=== PATIENT | male | born 1985 | race Caucasian/White ===

== ENCOUNTER 2017-01-24 05:35 | Emergency (ER) | payer SELFPAY ==
[2017-01-24] MEDS ORDERED: HYDROmorphone HCL/PF 1 MG/ML DISP.SYRIN ONE (06:05)
[2017-01-24] MEDS: ASPIRIN 81 MG CHEW TAB PO ONE (06:09)
[2017-01-24] MEDS: HYDROmorphone HCL/PF 1 MG/ML DISP.SYRIN IVP ONE ×2 (06:09→07:09)
[2017-01-24 06:11] LABS: BASOPHILS % 0.4 (0.0-1.5); EOSINOPHILS % 1.3 % (0.0-6.8); MEAN CORPUSCULAR HEMOGLOBIN 31.6 pg (28.0-34.0); MEAN CORPUSCULAR VOLUME 91.6 fl (80.0-100.0)
[2017-01-24 06:24] LABS: eGFR (African) > 60; eGFR (Non-African) > 60
--- NOTE | 2017-01-24 06:27 | Diagnostic Imaging Report ---
REZA BREWER [facility] [address] [facility].[address] [address] Report Submission Date: Jan 24, 2017 6:25:16 AM CDT Patient Study Name: DANNY DELEON Date: Jan 24, 2017 6:06:46 AM CDT Modality Type: CR Gender: M Description: CHEST : 89 Institution: [facility] Physician: REZA BREWER Examination: PA and lateral chest. History: Evaluate lung lamb. Findings: PA lateral chest demonstrate a normal cardiac and mediastinal silhouette. No focal infiltrate. No effusion. No blunting of the costophrenic margins. Osseous structures are appropriate for age. Impression: No acute process. Electronically signed on Jan 24, 2017 6:25:16 AM CDT by: Phil JONES
--- NOTE | 2017-01-24 07:24 | ED Physician Documentation ---
Chest Pain - HISTORIAN Historian: patient, spouse, child - HPI Stated Complaint: Right rib pain Chief Complaint: Chest Pain Additional Information: pt had flu bugabout 2 weeks ago hasnt felt well since worse past several days- much worse approx 0200hrs with exxquisite pain rt lat thorax-when moves breathes or coughs-took ibu w/o relief Timing: gradual onset Last known Well Date: 01/10/17 Last Known Well Time: 02:00 Severity: moderate, severe Quality: burning, aching, sharp Chest Pain Radiation: no radiation Chest Pain Signs/Symptoms: denies: nausea, vomiting, diaphoresis Worsened By: deep breaths, exertion, change in position Relieved By: rest (staying still and hot shower) - ROS CONST: recent illness MS/LYMPH: none GI/: none EYES/ENT: denies: problems with vision, sore throat SKIN/ENDO: none NEURO/PSYCH: none - PAST HX ME risk factors: no pertinent history DVT/PE Risk Factors: none Neuro deficit: none GI disease: none Lung disease: none Surgeries/Procedures: none Allergies/Adverse Reactions: Allergies Allergy/AdvReac Type Severity Reaction Status Date / Time No Known Allergies Allergy Unverified 01/24/17 06:03 Home Medications: Ambulatory Orders Medication Instructions Recorded NK [NK] 01/24/17 - SOCIAL HX Smoking History: less than 1 pack/day Alcohol Use: none Drug Use: none - FAMILY HX Family HX: denies: CAD under 55 - VITAL SIGNS Vital Signs: Vital Signs Temp Pulse Resp BP Pulse Ox 99.9 F H 54 L 20 159/83 98 01/24/17 06:28 01/24/17 05:35 01/24/17 05:35 01/24/17 05:35 01/24/17 07:03 - REVIEWED ASSESSMENTS Nursing Assessment Reviewed: Yes Vitals Reviewed: Yes ED Results Lab/Radiology - Lab Results Lab Results: Lab Results 01/24/17 01/24/17 01/24/17 06:05 06:05 06:05 WBC RBC Hgb Hct MCV MCH MCHC RDW Plt Count Neut % (Auto) Lymph % (Auto) Shannon % (Auto) Eos % (Auto) Baso % (Auto) Neut # (Auto) Lymph # (Auto) Shannon # (Auto) Eos # (Auto) Baso # (Auto) Reactive Lymphs % Reactive Lymphs # D-Dimer 219 ng/mL ng/mL (6.0-682) Sodium 141 mmol/L mmol/L (136-145) Potassium 3.9 mmol/L mmol/L (3.5-5.0) Chloride 107 mmol/L mmol/L (98-110) Carbon Dioxide 30 mmol/L mmol/L (20-32) BUN 9 mg/dL L mg/dL (10-26) Creatinine 0.9 mg/dL mg/dL (0.4-1.5) Estimated Creat Clear 89 Est GFR ( Amer) > 60 (60 - ) Est GFR (Non-Af Amer) > 60 (60 - ) Glucose 131 mg/dL H mg/dL (70-99) Calcium 9.4 mg/dL mg/dL (8.5-10.5) Total Bilirubin 0.3 mg/dL mg/dL (0.2-1.2) AST 27 U/L U/L (0-41) ALT 14 U/L U/L (0-45) Alkaline Phosphatase 61 U/L U/L (46-116) Troponin I < 0.03 ng/mL L ng/mL (0.03-0.06) Total Protein 6.9 g/dL g/dL (6.0-8.5) Albumin 4.6 g/dL g/dL (3.0-5.5) 01/24/17 06:05 WBC 15.20 K/ul H K/ul (4.00-12.00) RBC 4.74 M/ul M/ul (3.90-5.20) Hgb 15.0 g/dL g/dL (12.0-18.0) Hct 43.4 % % (37.0-53.0) MCV 91.6 fl fl (80.0-100.0) MCH 31.6 pg pg (28.0-34.0) MCHC 34.6 g/dL g/dL (30.0-36.0) RDW 12.8 % % (11.3-14.3) Plt Count 148 K/mm3 K/mm3 (130-400) Neut % (Auto) 85.6 % H % (39.0-79.0) Lymph % (Auto) 9.0 % L % (16.0-50.0) Shannon % (Auto) 3.0 % % (0.0-11.0) Eos % (Auto) 1.3 % % (0.0-6.8) Baso % (Auto) 0.4 (0.0-1.5) Neut # (Auto) 13.0 # k/uL H # k/uL (1.4-7.7) Lymph # (Auto) 1.4 # k/uL # k/uL (0.6-4.0) Shannon # (Auto) 0.5 # k/uL # k/uL (0.0-0.9) Eos # (Auto) 0.2 # k/uL # k/uL (0.0-0.6) Baso # (Auto) 0.0 # k/uL # k/uL (0.0-0.5) Reactive Lymphs % 0.8 % % (0.0-5.0) Reactive Lymphs # 0.1 # k/uL # k/uL (0.0-0.8) D-Dimer Sodium Potassium Chloride Carbon Dioxide BUN Creatinine Estimated Creat Clear Est GFR ( Amer) Est GFR (Non-Af Amer) Glucose Calcium Total Bilirubin AST ALT Alkaline Phosphatase Troponin I Total Protein Albumin - Radiology Radiology Impressions: rad says maybe bronchitis but w/crepitance and hx plus lab wwe will tx as pneumonia followint 'FLU' but 2 w/ago - Orders Orders: ED Orders Category Date Time Status Continuous Pulse Oximetry Q30M Care 01/24/17 05:[address] IV Lock 1T Care 01/24/17 06:06 Active CHEST P.A.&LAT 2 VIEWS [RAD] Stat Exams 01/24/17 Completed CBC/PLATELET/DIFF Routine Lab 01/24/17 06:05 Completed CMP Routine Lab 01/24/17 06:05 Completed D DIMER Stat Lab 01/24/17 06:05 Completed TROPONIN I (cTnI) Stat Lab 01/24/17 06:05 Completed Aspirin Med 01/24/17 05:51 Discontinued 324 mg PO NOW ONE HYDROmorphone HCL/PF [Dilaudid] Med 01/24/17 06:05 Discontinued 1 mg .ROUTE .STK-MED ONE HYDROmorphone HCL/PF [Dilaudid] Med 01/24/17 06:05 Discontinued 1 mg IVP NOW ONE HYDROmorphone HCL/PF [Dilaudid] Med 01/24/17 07:07 Discontinued 1 mg IVP NOW ONE EKG WITH COMPARISON Stat Ther 01/24/17 05:51 Ordered Chest Pain Physical Exam - EXAM General Appearance: moderate distress, anxious EENT: eye inspection normal, TM erythema Neck: nml inspection Respiratory: no resp. distress, manifests distinct pain on movement, right, wheezes (krystyna on rt lat thorax), rales, rhonchi. No: nml breath sounds CVS: reg. rate & rhythm Abdomen: soft, non-tender Skin: warm/dry, normal color. No: cyanosis, diaphoresis, jaundice Neuro: oriented X3, CN's nml as tested, motor nml, sensation nml, mood/affect nml Discharge Clincal Impression: rt lower lobe pneumonia Referrals: Primary Doctor,No [Primary Care Provider] - 2 Days Home Medications: Ambulatory Orders NK [NK] 01/24/17 Comments: rec heat pad to rt lat thorax-no work for few days Condition: Good Disposition: 01 HOME, SELF-CARE Decision to Admit: NO Decision Time: 07:29
[2017-01-24 07:26] VITALS: BP 96/59
== END 2017-01-24 07:22 | disposition home or self-care (01) ==
LOC: ED 05:35
DX: J18.9 Pneumonia, unspecified organism (principal)
CPT/HCPCS: 71020; 80053; 84484; 85025; 85379; 93005; J1170; 96374; 96376; 99283; S1016